=== PATIENT | female | born 1965 | race Two or more races ===

== ENCOUNTER → 2021-08-18 08:00 | Outpatient (CLI) | payer OTHER ==
[~2021-08-18 08:00] MED LIST: CRESTOR40 MG; ECOTRIN81 MG; ENALAPRIL-HCTZ1 EACH; GLUMETZA1000 MG; JARDIANCE25 MG; NEURONTIN300 MG; OMEPRAZOLE40 MG; TIROSINT125 MCG; TOPROL XL25 M1; VASOTEC10 MG
== END | disposition home or self-care (01) ==
LOC: ADM 07:00 → LAB 08:00 → CIR.AMB 08-19 07:00 → EDSTATUS 08-19 07:00 → CIR.AMB 08-19 09:30
PROVIDERS: ATTEND Obstetrics & Gynecology
DX: N95.0 Postmenopausal bleeding (principal)

== ENCOUNTER 2021-09-23 05:43 | Day surgery (SDC) | payer OTHER | END 2021-09-23 12:20 | disposition home or self-care (01) | LOC: CIR.AMB 05:43 | PROVIDERS: ATTEND Obstetrics & Gynecology | DX: N95.0 Postmenopausal bleeding (principal); Z20.822 Contact with and (suspected) exposure to COVID-19 ==